=== PATIENT | female | born 1960 | race Caucasian/White ===

== ENCOUNTER 2016-12-04 14:28 | Emergency (ER) | payer OTHER ==
[~2016-12-04] VITALS: Ht 162.6 cm; Wt 80.0 kg
[2016-12-04 15:21] VITALS: Ht 162.6 cm; Wt 80.0 kg
[2016-12-04] MEDS ORDERED: KETOROLAC 30 MG INJ IM STA (18:11)
[2016-12-04] MEDS ORDERED: HYDROCODONE/APAP (5/325) TAB PO ONE (18:30)
[2016-12-04] MEDS ORDERED: ACET1TAB40 PO (18:31)
[2016-12-04] MEDS ORDERED: NAPR-260 PO (18:31)
--- NOTE | 2016-12-04 19:33 | ERD ---
ER Documentation Chief Complaint Date/Time DATE: 12/04/16 TIME: 19:29 Chief Complaint HAS CHAVEZ NECK AND FEELS HER LEFT ARM NUMB HPI Patient has had a diffuse headache for 2 days it was worse today headache is constant. His bilateral neck and rhomboid pain. This morning she had some numbness in the left arm but now the left arm has pain. No nausea or vomiting. She complains of chest wall pain. She has knee problems takes Tylenol and apparently ibuprofen. No history of strokes or cardiac problems. No focal weakness. ROS All systems reviewed and are negative except as per history of present illness. Medications Home Meds Active Scripts Acetaminophen with Codeine (Acetaminophen-Cod #3 Tablet) 1 Each Tablet, 1 TAB PO Q6H Y for PAIN, #7 TAB Prov:JOHNNIE RENDON DO 12/04/16 Naproxen* (Naprosyn*) 500 Mg Tablet, 500 MG PO BID Y for PAIN AND/OR INFLAMMATION, #10 TAB Prov:JOHNNIE RENDON DO 12/04/16 Allergies Allergies: Coded Allergies: No Known Allergy (Unverified , 12/04/16) PMhx/Soc Medical and Surgical Hx: pt denies Medical Hx, pt denies Surgical Hx Physical Exam Vitals Vital Signs Date Time Temp Pulse Resp B/P Pulse Ox O2 Delivery O2 Flow Rate FiO2 12/04/16 15:21 99.0 65 18 134/71 96 Physical Exam Const: [Alert oriented 4, well-nourished well-developed nontoxic- appearing no apparent distress, interacts appropriately] Head: [Normocephalic/atraumatic, no scalp lesions] Eyes: [Normal Conjunctiva, PERRLA, EOMI no conjunctival injection no conjunctival discharge] ENT: [Normal External Ears, Nose and Mouth, no tonsillar exudates no tonsillar erythema no tonsillar edema oropharynx no erythema. bilateral ear canals are patent, bilateral tympanic membranes nonerythematous.] Neck: [Full range of motion. No meningismus. No cervical lymphadenopathy] Resp: [Clear to auscultation bilaterally, no wheezes rhonchi or rales, breathing normally, no tachypnea no nasal flaring no grunting no accessory muscle use no retractions] Cardio: [Regular rate and rhythm, no murmurs] Abd: [Soft, non tender, non distended. Normal bowel sounds, no rebound rigidity or guarding. Normoactive bowel sounds no flank tenderness, negative McBurney's negative Segovia sign.] Skin: [No petechiae or rashes, no hives no urticaria no abscess no laceration no new warmth] Back: [No midline or flank tenderness, full range of motion without pain ] Ext: [No cyanosis, clubbing or edema, left upper lateral humerus is tender to palpation in the soft tissue she has some pain with shoulder abduction negative Neer's positive apprehension on the left shoulder. Mild to moderate tenderness to palpation in the bilateral upper neck soft tissue Neuro: M/S: Alert and oriented 4. Face: EOMI, face and pharynx with normal sensation and function Motor: Normal strength throughout, muscle strength is 5 out of 5 bilateral upper extremity and bilateral lower extremity Sensation: Normal sensation throughout Speech: Normal Cerebel: Normal coordination Normal gait DTR: 2+ and symmetric upper/lower extremities Psych: [Normal Mood and Affect, no suicidal ideation or homicide ideation] Results 24 hrs Current Medications Medications (Trade) Dose Ordered Sig/Opal Route PRN Reason Start Time Stop Time Status Last Admin Dose Admin Ketorolac Tromethamine (Toradol) 30 mg ONCE STAT IM 12/04/16 18:11 12/04/16 18:13 DC 12/04/16 18:20 Acetaminophen/ Hydrocodone Bitart ([place] (5/325)) 1 tab ONCE ONCE PO 12/04/16 18:30 12/04/16 18:31 DC 12/04/16 18:20 Procedures/MDM She does not have any neurological deficits and she has no nausea or focal weakness now so I do not think she requires a CAT scan of the head. Less likely to be a TIA or stroke. Left arm is tender to palpation in the soft tissues of this is likely a muscular strain. Headache differential includes intracranial hemorrhage or stroke or intracranial mass or less likely meningitis or encephalitis, also this could be more likely a tension headache as she has pain in the neck and the muscles in the back is tender to palpation. Franchot also includes cluster headache or less likely migraine headache or vascular headache or other. Vital signs are stable she has no neurological deficits she stable for discharge and outpatient follow-up. He received pain medications here and pain medications for home. Departure Diagnosis: Primary Impression: Headache Headache type: tension-type Headache chronicity pattern: acute headache Intractability: intractable Qualified Code: G44.201 - Acute intractable tension-type headache Additional Impression: Left arm pain Condition: Stable Patient Instructions: Self-Care for Headaches JOHNNIE RENDON DO Dec 04, 2016 19:32
== END 2016-12-04 18:44 | disposition home or self-care (01) ==
LOC: FTE 14:28
DX: G44.201 Tension-type headache, unspecified, intractable (principal); M79.602 Pain in left arm
CPT/HCPCS: 96372; J1885; Z7502; Z7610; 93005

== ENCOUNTER 2018-07-15 06:52 | Day surgery (SDC) | END 2018-07-15 09:45 | disposition home or self-care (01) ==

== ENCOUNTER 2018-09-10 10:40 | Emergency (ER) | END 2018-09-10 12:31 | disposition home or self-care (01) ==

== ENCOUNTER 2019-05-15 08:46 | Emergency (ER) | payer OTHER ==
[~2019-05-15] VITALS: Ht 165.1 cm; Wt 79.0 kg
[~2019-05-15 08:46] MED LIST: ALBU2.5V3 NEB; ALBU8.5H8 INH; AZIT250T PO; GUAI120L41 PO; MONT10TA21 PO; NEBU-27 MC; PRED20TA PO; TYLENOL
[2019-05-15 08:49] VITALS: BP 146/79; PULSE 78; RESP 18; Ht 165.1 cm; Wt 79.0 kg
[2019-05-15] MEDS ORDERED: KETOROLAC 30 MG INJ IM STA (09:29)
[2019-05-15] MEDS ORDERED: CYCL10TA7 PO (09:32)
[2019-05-15] MEDS ORDERED: IBUP-1542 PO (09:32)
--- NOTE | 2019-05-15 09:39 | ERD ---
ER Documentation Chief Complaint Chief Complaint right shoulder and back pain x 4 days HPI 58-year-old female presenting with left shoulder pain x4 days. It was noted on intake that patient was complaining of right shoulder and back pain when I spoke to the patient she states that it is her left shoulder and it is been going on for the last 4 days. Patient denies any traumatic event she states that she was walking in the park when she started to feel the pain. Patient denies any weakness in the extremity or limited range of motion in the extremity. Patient did not denies any confusion headache blurry vision. When asked patient states that she does sleep on the left side at night. Patient denies any allergies to medication and states her only past medical history of stomach ulcers which she is currently taking medication for. Patient states the pain is about a 4 out of 10 and has been consistent since the onset and the pain does not come and go it stays persistent and just feels a dull. ROS All systems reviewed and are negative except as per history of present illness. Medications Home Meds Active Scripts Ibuprofen* (Motrin*) 600 Mg Tab, 600 MG PO Q6, #30 TAB Prov:JENNIFER MONTIEL PA-C 05/15/19 Cyclobenzaprine Hcl* (Cyclobenzaprine Hcl*) 10 Mg Tablet, 10 MG PO TID, #15 TAB Prov:JENNIFER MONTIEL PA-C 05/15/19 Nebulizer (ALTERA NEBULIZER) 1 Each Each, EACH , #1 Prov:MILADY HUMPHREY PA-C 01/08/19 Prednisone* (Prednisone*) 20 Mg Tab, 40 MG PO DAILY for 4 Days, TAB Prov:MILADY HUMPHREY PA-C 01/08/19 Albuterol Sulfate* (Proair HFA*) 8.5 Gm Hfa.aer.ad, 2 PUFF INH Q4, #1 INHALER Prov:MILADY HUMPHREY PA-C 01/08/19 Albuterol Sulfate* (Albuterol Sulfate* Neb) 0.083%-3 Ml Neb, 2.5 MG NEB Q4 PRN for SHORTNESS OF BREATH, #30 EA Prov:MILADY HUMPHREY PA-C 01/08/19 Guaifenesin/Codeine Phosphate (Codeine-Guaifen 10-100 mg/5 ml) 120 Ml Liquid, 5 ML PO QHS PRN for COUGH, #60 ML Prov:KIMBERLY MOTLEY MD 09/10/18 Montelukast Sodium* (Singulair*) 10 Mg Tablet, 10 MG PO QHS, #30 TAB Prov:KIMBERLY MOTLEY MD 09/10/18 Albuterol Sulfate* (Proair HFA*) 8.5 Gm Hfa.aer.ad, 2 PUFF INH Q4H PRN for WHEEZING AND SOB, #1 INHALER Prov:KIMBERLY MOTLEY MD 09/10/18 Azithromycin* (Zithromax*) 250 Mg Tablet, 250 MG PO .ZPACK DIRECTED, #6 TAB TAKE 500 MG (2 TABS) THE FIRST DAY THEN 250 MG (1 TAB) DAYS 2-5 Prov:KIMBERLY MOTLEY MD 09/10/18 Reported Medications [Tylenol] No Conflict Check 07/15/18 Allergies Allergies: Coded Allergies: No Known Allergy (Unverified , 01/08/19) PMhx/Soc History of Surgery: Yes (CHOLECYSTECOMY) Anesthesia Reaction: No Hx Neurological Disorder: No Hx Respiratory Disorders: No Hx Cardiac Disorders: No Hx Psychiatric Problems: No Hx Miscellaneous Medical Probl: Yes (gastric ulcer, arthritis.) Hx Alcohol Use: No Hx Substance Use: No Hx Tobacco Use: No Smoking Status: Never smoker FmHx Family History: No diabetes, No coronary disease, No other Physical Exam Vitals Vital Signs Date Temp Pulse Resp B/P (MAP) Pulse Ox O2 O2 Flow FiO2 Time Delivery Rate 05/15/19 97.4 78 18 146/79 98 08:49 (101) Physical Exam GENERAL: The patient is well-appearing, well-nourished, in no acute distress HEENT: Atraumatic. Conjunctivae are pink. Pupils equal, round, and reactive to light. There is no scleral icterus. Tympanic membranes clear bilaterally. Oropharynx clear. No nystagmus or photophobia. NECK: C-spine is soft and supple. There is no meningismus. There is no cervical lymphadenopathy. CHEST: Clear to auscultation bilaterally. There are no rales, wheezes or rhonchi. HEART: Regular rate and rhythm. No murmurs, clicks, rubs or gallops. ABDOMEN:Soft, nontender and nondistended. Good bowel sounds. No rebound or guarding. No gross peritonitis. No gross organomegaly or masses. No Segovia sign or McBurney point tenderness. BACK: No midline or flank tenderness. EXTREMITIES: Patient has notable muscle spasm on palpation to the left trapezius muscle , equal pulses bilaterally. There is no peripheral clubbing, cyanosis or edema. No focal swelling or erythema. Full range of motion. Grossly neurovascularly intact. NEUROLOGIC: Alert and oriented. Cranial nerves II through V intact. Motor strength in all 4 extremities with 5 out of 5 strength. Sensation grossly intact. Normal speech and gait. [place] stroke scale No pronator drift, no asymmetry in facial muscles, patient is able to raise eyebrows without difficulty, no slurred speech, Results 24 hrs Current Medications Medications Dose Sig/Opal Start Time Status Last (Trade) Ordered Route PRN Stop Time Admin Dose Reason Admin Ketorolac 30 mg ONCE STAT 05/15/19 DC 05/15/19 Tromethamine IM 09:29 09:39 (Toradol) 05/15/19 09:30 Procedures/MDM Medications given in ER: Toradol Patient tolerated medication well with no adverse reactions. Patient reported improvement in pain. Medical decision makin year-old female presenting to the ER for left shoulder pain. Physical exam was unremarkable pain only reproduced when palpating left trapezius patient [place] stroke scale showed no neuro deficits. Patient was given IM injection of Toradol and on reevaluation appears to be doing much better. Patient was advised to use heat at home and follow-up with her primary care provider regarding this visit. Patient had no chest pain no shortness of breath. Patient is not a smoker does not have history of high blood pressure diabetes. At this time I have low suspicion for OR, TIA, CVA, glaucoma, spinal cord injury, neurovascular injury, compartment syndrome, dislocation, fracture, osteomyelitis. Patient is being discharged with prescription for cyclobenzaprine and ibuprofen and was advised to follow-up with primary care provider regarding this visit. Patient was advised if symptoms worsen return to the ER immediately. Patient is in compliant with the treatment plan And had no further questions upon discharge Prescription for home: Ibuprofen Cyclobenzaprine Discharge: At this time, patient is stable for discharge and outpatient management. I have instructed the patient to follow-up with his\her primary care physician in 1 to 2 days. I have discussed with the patient the possibility of needing to see a specialist for further work-up and imaging studies if symptoms persist. I have instructed the patient to promptly return to the ER for any new or worsening symptoms including increased pain, fever, nausea, vomiting, weakness or LOC. The patient and\or family expressed understanding of and agreement with this plan. All questions were answered. Home care instructions were provided. Disclaimer: Inadvertent spelling and grammatical errors are likely due to EHR\dictation software use and do not reflect on the overall quality of patient care. Also, please note that the electronic time recorded on the note does not necessarily reflect the actual time of the patient encounter. Departure Diagnosis: Primary Impression: Shoulder pain Chronicity: acute Laterality: left Qualified Codes: M25.512 - Pain in left shoulder Additional Impression: Muscle spasm of left shoulder Condition: Stable Patient Instructions: Muscle Spasm Referrals: [facility] YOU HAVE RECEIVED A MEDICAL SCREENING EXAM AND THE RESULTS INDICATE THAT YOU DO NOT HAVE A CONDITION THAT REQUIRES URGENT TREATMENT IN THE EMERGENCY DEPARTMENT. FURTHER EVALUATION AND TREATMENT OF YOUR CONDITION CAN WAIT UNTIL YOU ARE SEEN IN YOUR DOCTORS OFFICE WITHIN THE NEXT 1-2 DAYS. IT IS YOUR RESPONSIBILITY TO MAKE AN APPOINTMENT FOR FOLOW-UP CARE. IF YOU HAVE A PRIMARY DOCTOR --you should call your primary doctor and schedule an appointment IF YOU DO NOT HAVE A PRIMARY DOCTOR YOU CAN CALL OUR PHYSICIAN REFERRAL HOTLINE AT IF YOU CAN NOT AFFORD TO SEE A PHYSICIAN YOU CAN CHOSE FROM THE FOLLOWING [facility] [address] [facility]. [facility] [address] [facility] [address] [facility] [address] [facility]. [facility] [address] [facility]. [facility]. [address] [facility]. [facility] YOU HAVE RECEIVED A MEDICAL SCREENING EXAM AND THE RESULTS INDICATE THAT YOU DO NOT HAVE A CONDITION THAT REQUIRES URGENT TREATMENT IN THE EMERGENCY DEPARTMENT. FURTHER EVALUATION AND TREATMENT OF YOUR CONDITION CAN WAIT UNTIL YOU ARE SEEN IN YOUR DOCTORS OFFICE WITHIN THE NEXT 1-2 DAYS. IT IS YOUR RESPONSIBILITY TO MAKE AN APPOINTMENT FOR FOLOW-UP CARE. IF YOU HAVE A PRIMARY DOCTOR --you should call your primary doctor and schedule and appointment IF YOU DO NOT HAVE A PRIMARY DOCTOR YOU CAN CALL OUR PHYSICIAN REFERRAL HOTLINE AT . IF YOU CAN NOT AFFORD TO SEE A PHYSICIAN YOU CAN CHOSE FROM THE FOLLOWING [facility] INSTITUTIONS: [facility] [address] [place] [address] [facility] [address] [place] [address] [facility] + [facility] [address] [place] [address] Additional Instructions: Call your primary care doctor TOMORROW for an appointment during the next 1-2 days.See the doctor sooner or return here if your condition worsens before your appointment time. JENNIFER MONTIEL PA-C May 15, 2019 09:39
== END 2019-05-15 09:59 | disposition home or self-care (01) ==
LOC: FTE 08:46
DX: M25.511 Pain in right shoulder (principal); M62.838 Other muscle spasm
CPT/HCPCS: 96372; J1885